=== PATIENT | male | born 1935 | race Caucasian/White ===

== ENCOUNTER 2019-06-24 18:32 | Inpatient (IN) ==
[2019-06-24 19:33] LABS: Basophils # 0.1 K/mcL (0.0-0.2); Basophils % 0.9 %; Eosinophils # 0.5 K/mcL (0.0-0.6); Eosinophils % 4.7 %; Hematocrit 29.5 % (37.5-50.1); Hemoglobin 10.2 g/dL (12.9-16.9); Immature Granulocytes % 0.4 % (0-4); Lymphocytes % 20.3 %; Mean Corpuscular HGB Conc 34.6 g/dL (31.6-35.5); Mean Corpuscular Volume 89.7 fL (83.0-100.0); Mean Platelet Volume 10.2 fL (9.4-12.4); Monocytes # 0.9 K/mcL (0.0-1.3); Monocytes % 9.5 %; Neutrophils # 6.2 K/mcL (1.6-8.9); Platelet Count 234 K/mcL (140-400); Red Blood Count 3.29 M/mcL (4.19-5.50); Red Cell Distribution Width 12.9 % (11.5-14.5); Segmented Neutrophils % 64.2 %; White Blood Count 9.7 K/mcL (4.3-11.1)
[2019-06-24 19:38] LABS: INR 1.1
[2019-06-24 19:41] LABS: Activated Partial Thrombo Time 33.4 Seconds (26.0-36.0)
[2019-06-24 19:52] LABS: Albumin 3.8 g/dL (3.5-5.7); Albumin/Globulin Ratio 1.5 (1.1-2.2); Bilirubin,Total 0.3 mg/dL (0.3-1.0); Calcium 8.6 mg/dL (8.6-10.3); Globulin 2.6 g/dL (2.4-3.5); Total Protein 6.4 g/dL (6.4-8.9)
[2019-06-24 20:51] LABS: Bilirubin,Urine Negative (Negative); Blood,Urine Negative (Negative); Clarity,Urine Clear (Clear); Color,Urine Yellow (Yellow); Glucose,Urine (UA) Normal (Normal); Ketones,Urine Negative (Negative); Leukocyte Esterase,Urine Negative (Negative); Nitrite,Urine Negative (Negative); PH,Urine 6.5 pH Units (5.0-8.0); Protein,Urine 30 mg/dL (Neg-Trace); Specific Gravity,Urine 1.008 (1.010-1.025); Urobilinogen,Urine Normal (Normal)
[2019-06-24 20:52] LABS: Bacteria,Urine None Seen per hpf (None-Few); Hyaline Casts,Urine None Seen per lpf (None-Few); RBC,Urine 0-3 per hpf (0-3); Squamous Epithelial Cell,Urine None Seen per lpf (None-Few); WBC,Urine 0-3 per hpf (0-3)
[2019-06-24] MEDS ORDERED: Naloxone 0.4 MG/ML INJ IVP PRN (21:09)
[2019-06-24] MEDS ORDERED: amLODIPine 5 MG TABLET PO ONE (22:03)
[2019-06-24] MEDS: *HR* OxyCODONE/APAP 5/325 TABLET PO PRN (23:38)
[2019-06-25] MEDS: Ondansetron 4 MG/2 ML VIAL IVP PRN (00:54)
[2019-06-25 06:36] LABS: Hematocrit 30.7 % (37.5-50.1); Hemoglobin 10.7 g/dL (12.9-16.9); Mean Corpuscular HGB Conc 34.9 g/dL (31.6-35.5); Mean Corpuscular Hemoglobin 31.4 pg (28.0-33.3); Mean Platelet Volume 10.3 fL (9.4-12.4); Platelet Count 258 K/mcL (140-400); Red Blood Count 3.41 M/mcL (4.19-5.50); Red Cell Distribution Width 12.9 % (11.5-14.5); White Blood Count 11.6 K/mcL (4.3-11.1)
[2019-06-25 06:56] LABS: Calcium 8.8 mg/dL (8.6-10.3); Chol/HDL Ratio 3.3 (0-4.9); Potassium 4.2 mEq/L (3.5-5.1)
[2019-06-25] MEDS: carvediloL 25 MG TABLET PO SCH (09:09)
[2019-06-25] MEDS: Aspirin Enteric Coated 81 MG Tablet PO SCH (09:10)
[2019-06-25] MEDS: *HR* Heparin 5,000 UNIT/ML VIAL SQ SCH (18:17)
[2019-06-25] MEDS: *HR* OxyCODONE/APAP 5/325 TABLET PO PRN (18:19)
[2019-06-26] MEDS: *HR* Heparin 5,000 UNIT/ML VIAL SQ SCH ×2 (05:30→16:35)
[2019-06-26] MEDS: Ondansetron 4 MG/2 ML VIAL IVP PRN (09:49)
[2019-06-26] MEDS: Aspirin Enteric Coated 81 MG Tablet PO SCH (09:50)
[2019-06-26] MEDS: hydrALAZINE 25 MG TABLET PO SCH ×3 (12:05→23:23)
[2019-06-26] MEDS ORDERED: Haloperidol Lactate 5 MG/ML VIAL IM ONE (18:24)
[2019-06-26] MEDS ORDERED: *HR* Promethazine 25 MG/ML VIAL IM ONE (21:33)
[2019-06-27] MEDS: *HR* Heparin 5,000 UNIT/ML VIAL SQ SCH ×2 (06:25→17:27)
[2019-06-27 07:13] LABS: Basophils # 0.1 K/mcL (0.0-0.2); Basophils % 0.5 %; Eosinophils % 0.2 %; Hematocrit 31.8 % (37.5-50.1); Hemoglobin 10.9 g/dL (12.9-16.9); Immature Granulocytes % 0.6 % (0-4); Lymphocytes # 1.5 K/mcL (0.6-4.6); Lymphocytes % 10.4 %; Mean Corpuscular HGB Conc 34.3 g/dL (31.6-35.5); Mean Corpuscular Hemoglobin 30.5 pg (28.0-33.3); Mean Corpuscular Volume 89.1 fL (83.0-100.0); Mean Platelet Volume 10.4 fL (9.4-12.4); Monocytes # 1.1 K/mcL (0.0-1.3); Monocytes % 7.7 %; Neutrophils # 11.5 K/mcL (1.6-8.9); Platelet Count 279 K/mcL (140-400); Red Blood Count 3.57 M/mcL (4.19-5.50); Red Cell Distribution Width 13.4 % (11.5-14.5); Segmented Neutrophils % 80.6 %; White Blood Count 14.3 K/mcL (4.3-11.1)
[2019-06-27 07:29] LABS: Calcium 8.9 mg/dL (8.6-10.3); Magnesium 2.1 mg/dL (1.6-2.6); Phosphorous 3.6 mg/dL (2.7-4.5); Potassium 4.1 mEq/L (3.5-5.1)
[2019-06-27] MEDS: hydrALAZINE 25 MG TABLET PO SCH ×3 (07:45→22:55)
[2019-06-27] MEDS: carvediloL 25 MG TABLET PO SCH (07:45)
[2019-06-27] MEDS: Aspirin Enteric Coated 81 MG Tablet PO SCH (07:46)
[2019-06-27] MEDS ORDERED: Haloperidol Lactate 5 MG/ML VIAL IM PRN (11:41)
[2019-06-28] MEDS: *HR* Heparin 5,000 UNIT/ML VIAL SQ SCH ×2 (05:49→17:25)
[2019-06-28 06:08] LABS: Basophils # 0.1 K/mcL (0.0-0.2); Basophils % 0.4 %; Eosinophils # 0.1 K/mcL (0.0-0.6); Eosinophils % 0.4 %; Hematocrit 30.8 % (37.5-50.1); Hemoglobin 10.6 g/dL (12.9-16.9); Immature Granulocytes % 0.7 % (0-4); Lymphocytes % 14.5 %; Mean Corpuscular HGB Conc 34.4 g/dL (31.6-35.5); Mean Corpuscular Hemoglobin 30.5 pg (28.0-33.3); Mean Corpuscular Volume 88.8 fL (83.0-100.0); Mean Platelet Volume 10.4 fL (9.4-12.4); Monocytes # 1.2 K/mcL (0.0-1.3); Monocytes % 8.5 %; Neutrophils # 10.4 K/mcL (1.6-8.9); Platelet Count 278 K/mcL (140-400); Red Blood Count 3.47 M/mcL (4.19-5.50); Red Cell Distribution Width 13.6 % (11.5-14.5); Segmented Neutrophils % 75.5 %; White Blood Count 13.8 K/mcL (4.3-11.1)
[2019-06-28 06:32] LABS: Calcium 8.7 mg/dL (8.6-10.3); Magnesium 2.1 mg/dL (1.6-2.6); Phosphorous 3.5 mg/dL (2.7-4.5); Potassium 3.7 mEq/L (3.5-5.1)
[2019-06-28] MEDS: hydrALAZINE 25 MG TABLET PO SCH ×3 (08:51→23:21)
[2019-06-28] MEDS: carvediloL 25 MG TABLET PO SCH (08:52)
[2019-06-28] MEDS: Aspirin Enteric Coated 81 MG Tablet PO SCH (08:52)
[2019-06-29] MEDS: *HR* Heparin 5,000 UNIT/ML VIAL SQ SCH (06:27)
[2019-06-29] MEDS: hydrALAZINE 25 MG TABLET PO SCH (08:48)
[2019-06-29] MEDS: carvediloL 25 MG TABLET PO SCH (08:49)
[2019-06-29] MEDS: Aspirin Enteric Coated 81 MG Tablet PO SCH (08:49)
[2019-06-29 11:02] VITALS: BP 102/52
[2019-06-29] MEDS ORDERED: Ondansetron ODT 4 MG TAB.RAPDIS SL PRN (11:04)
[2019-06-29] MEDS ORDERED: Azithromycin 250 MG TABLET PO SCH (11:15)
== END 2019-06-29 17:00 | DRG 65 ==
LOC: EMEROOARM 18:32 → 3NENU 18:32 → SUATTDRO 06-25 17:04
PROVIDERS: ADMIT Internal Medicine; ATTEND Internal Medicine

== ENCOUNTER 2019-10-27 21:27 | Inpatient (IN) ==
[2019-10-27] MEDS ORDERED: *HR* Labetalol 20 MG/4 ML SYRINGE IVP PRN (23:52)
[2019-10-28] MEDS ORDERED: Naloxone 0.4 MG/ML INJ IVP PRN (00:58)
[2019-10-28] MEDS ORDERED: Acetaminophen IV 1,000 MG/100 ML INFUS..BTL IVPB ONE (01:04)
[2019-10-28 01:38] LABS: Basophils # 0.1 K/mcL (0.0-0.2); Basophils % 0.9 %; Eosinophils # 0.4 K/mcL (0.0-0.6); Eosinophils % 4.5 %; Hematocrit 26.5 % (37.5-50.1); Hemoglobin 8.9 g/dL (12.9-16.9); Immature Granulocytes % 0.2 % (0-4); Lymphocytes # 2.2 K/mcL (0.6-4.6); Lymphocytes % 22.9 %; Mean Corpuscular HGB Conc 33.6 g/dL (31.6-35.5); Mean Corpuscular Hemoglobin 31.7 pg (28.0-33.3); Mean Corpuscular Volume 94.3 fL (83.0-100.0); Mean Platelet Volume 10.1 fL (9.4-12.4); Monocytes # 0.9 K/mcL (0.0-1.3); Monocytes % 9.8 %; Neutrophils # 5.9 K/mcL (1.6-8.9); Platelet Count 199 K/mcL (140-400); Red Blood Count 2.81 M/mcL (4.19-5.50); Red Cell Distribution Width 12.5 % (11.5-14.5); Segmented Neutrophils % 61.7 %; White Blood Count 9.6 K/mcL (4.3-11.1)
[2019-10-28 01:44] LABS: INR 1.2; Prothrombin Time 13.4 Seconds (9.4-12.1)
[2019-10-28 01:57] LABS: Albumin 3.6 g/dL (3.5-5.7); Albumin/Globulin Ratio 1.6 (1.1-2.2); Bilirubin,Total 0.5 mg/dL (0.3-1.0); Calcium 8.7 mg/dL (8.6-10.3); Globulin 2.3 g/dL (2.4-3.5); Phosphorous 3.3 mg/dL (2.7-4.5); Potassium 3.9 mEq/L (3.5-5.1); Total Protein 5.9 g/dL (6.4-8.9)
[2019-10-28] MEDS: amLODIPine 5 MG TABLET PO SCH ×2 (02:06→19:43)
[2019-10-28] MEDS: carvediloL 25 MG TABLET PO SCH ×2 (02:06→16:06)
[2019-10-28] MEDS: Aspirin Enteric Coated 81 MG Tablet PO SCH (09:16)
[2019-10-28 09:49] LABS: Bilirubin,Urine Negative (Negative); Blood,Urine Negative (Negative); Clarity,Urine Clear (Clear); Color,Urine Yellow (Yellow); Glucose,Urine (UA) Normal (Normal); Ketones,Urine Negative (Negative); Leukocyte Esterase,Urine Negative (Negative); Nitrite,Urine Negative (Negative); Protein,Urine 30 mg/dL (Neg-Trace); Specific Gravity,Urine 1.019 (1.010-1.025); Urobilinogen,Urine Normal (Normal)
[2019-10-28 09:51] LABS: Bacteria,Urine None Seen per hpf (None-Few); Hyaline Casts,Urine None Seen per lpf (None-Few); RBC,Urine 0-3 per hpf (0-3); Squamous Epithelial Cell,Urine Few per lpf (None-Few); WBC,Urine 0-3 per hpf (0-3)
[2019-10-28] MEDS: *HR* Labetalol 20 MG/4 ML SYRINGE IVP PRN ×2 (16:06→23:39)
[2019-10-28] MEDS: *HR* Heparin 5,000 UNIT/ML VIAL SQ SCH (16:06)
[2019-10-28] MEDS: cloNIDine HCL 0.1 MG TABLET PO SCH ×2 (18:10→19:43)
[2019-10-29] MEDS: *HR* Labetalol 20 MG/4 ML SYRINGE IVP PRN (00:32)
[2019-10-29] MEDS ORDERED: cloNIDine HCL 0.1 MG TABLET PO ONE (01:10)
[2019-10-29 01:11] LABS: Hematocrit 29.6 % (37.5-50.1); Hemoglobin 9.9 g/dL (12.9-16.9); Mean Corpuscular HGB Conc 33.4 g/dL (31.6-35.5); Mean Corpuscular Hemoglobin 31.3 pg (28.0-33.3); Mean Corpuscular Volume 93.7 fL (83.0-100.0); Mean Platelet Volume 10.3 fL (9.4-12.4); Platelet Count 207 K/mcL (140-400); Red Blood Count 3.16 M/mcL (4.19-5.50); Red Cell Distribution Width 12.4 % (11.5-14.5); White Blood Count 8.4 K/mcL (4.3-11.1)
[2019-10-29 01:31] LABS: Calcium 8.9 mg/dL (8.6-10.3); Potassium 4.1 mEq/L (3.5-5.1)
[2019-10-29] MEDS: *HR* Heparin 5,000 UNIT/ML VIAL SQ SCH ×2 (05:05→17:04)
[2019-10-29] MEDS: carvediloL 25 MG TABLET PO SCH ×2 (08:40→17:04)
[2019-10-29] MEDS: cloNIDine HCL 0.1 MG TABLET PO SCH ×3 (08:40→20:16)
[2019-10-29] MEDS: Mirtazapine 15 MG TABLET PO SCH (08:40)
[2019-10-29] MEDS: Aspirin Enteric Coated 81 MG Tablet PO SCH (08:40)
[2019-10-29] MEDS: amLODIPine 5 MG TABLET PO SCH (20:16)
[2019-10-30] MEDS: *HR* Heparin 5,000 UNIT/ML VIAL SQ SCH (05:27)
[2019-10-30 06:03] LABS: Calcium 8.8 mg/dL (8.6-10.3); Potassium 4.1 mEq/L (3.5-5.1)
[2019-10-30 06:45] VITALS: BP 149/65
[2019-10-30] MEDS: Aspirin Enteric Coated 81 MG Tablet PO SCH (08:02)
[2019-10-30] MEDS: carvediloL 25 MG TABLET PO SCH (08:02)
[2019-10-30] MEDS: cloNIDine HCL 0.1 MG TABLET PO SCH (08:02)
[2019-10-30] MEDS: Mirtazapine 15 MG TABLET PO SCH (08:03)
== END 2019-10-30 12:40 | disposition home or self-care (01) | DRG 78 ==
LOC: 3BNU
PROVIDERS: ADMIT Internal Medicine; ATTEND Internal Medicine